=== PATIENT | male | born 1980 | race African-American/Black ===

== ENCOUNTER → 2020-10-17 | Outpatient (CLI) | payer BC ==
[2020-10-17 09:31] LABS: BASO % 2 % (0-3); EOS # 0.1 x10^3/uL (0.0-0.7); EOS % 3 % (0-3); HEMOGLOBIN 15.4 g/dL (13.0-17.5); LYMPH # 0.8 x10^3/uL (1.0-4.8); LYMPH % 30 % (24-48); MEAN CORPUSCULAR HEMOGLOBIN 30 pg (25-35); MEAN CORPUSCULAR HGB CONC 34 g/dL (31-37); MEAN CORPUSCULAR VOLUME 90 fL (79-100); MONO # 0.3 x10^3/uL (0.0-1.1); MONO % 13 % (0-9); NEUT # 1.3 x10^3/uL (1.8-7.7); NEUT % 52 % (31-73); RED BLOOD COUNT 5.12 x10^6/uL (4.30-5.70); RED CELL DISTRIBUTION WIDTH 13.6 % (11.5-14.5); WHITE BLOOD COUNT 2.6 x10^3/uL (4.0-11.0)
[2020-10-18 05:37] LABS: PLATELET COUNT 66 x10^3/uL (140-400)
[2020-10-18 13:17] LABS: IMMUNOGLOBULIN A 209 mg/dL (90-386); IMMUNOGLOBULIN G 1315 mg/dL (603-1613); IMMUNOGLOBULIN M 26 mg/dL (20-172)
[2020-10-18 14:17] LABS: ALBUM 4.3 g/dL (2.9-4.4); ALPHA 1 0.2 g/dL (0.0-0.4); ALPHA 2 0.5 g/dL (0.4-1.0); GAMMA 1.3 g/dL (0.4-1.8); PROTEIN TOTAL 7.2 g/dL (6.0-8.5); SPEP AG RATIO 1.5 (0.7-1.7)
[2020-10-18 16:13] LABS: KAPPA FREE 20.1 mg/L (3.3-19.4); LAMBDA FREE 18.3 mg/L (5.7-26.3)
[2020-10-18 19:09] LABS: ANA INTERP Negative (.)
== END ==
LOC: ONCLAB 09:01
PROVIDERS: ATTEND Internal Medicine Hematology & Oncology
DX: D69.6 Thrombocytopenia, unspecified (principal)
CPT/HCPCS: 36415; 82525; 82746; 82784; 83010; 83520; 84165; 85025; 86038; 86334

== ENCOUNTER 2020-11-07 07:24 | Outpatient (CLI) | payer BC ==
[2020-11-07] VITALS (11 sets, daily range): BP systolic 100–118; BP diastolic 59–79
[~2020-11-07] VITALS: Ht 188 cm; Wt 204.0 kg
[2020-11-07 07:55] LABS: BASO % 1 % (0-3); EOS # 0.2 x10^3/uL (0.0-0.7); EOS % 4 % (0-3); HEMOGLOBIN 15.7 g/dL (13.0-17.5); LYMPH # 1.2 x10^3/uL (1.0-4.8); LYMPH % 31 % (24-48); MEAN CORPUSCULAR HEMOGLOBIN 30 pg (25-35); MEAN CORPUSCULAR HGB CONC 33 g/dL (31-37); MEAN CORPUSCULAR VOLUME 90 fL (79-100); MONO # 0.5 x10^3/uL (0.0-1.1); MONO % 14 % (0-9); NEUT # 1.9 x10^3/uL (1.8-7.7); NEUT % 50 % (31-73); PLATELET COUNT 68 x10^3/uL (140-400); RED BLOOD COUNT 5.21 x10^6/uL (4.30-5.70); RED CELL DISTRIBUTION WIDTH 13.9 % (11.5-14.5); WHITE BLOOD COUNT 3.8 x10^3/uL (4.0-11.0)
[2020-11-07 08:00] LABS: PROTHROMBIN TIME PATIENT 11.9 SEC (11.7-14.0)
[2020-11-07] MEDS ORDERED: LIDOCAINE WITH 8.4% SOD BICARB 3 ML DISP.SYRIN. ONE ×2 (08:21→08:22)
[2020-11-07 08:37] LABS: PLT ESTIMATE DECREASED (ADEQUATE)
[2020-11-07] MEDS ORDERED: MIDAZOLAM HCL/PF 2 MG/2 ML VIAL. ONE (08:45)
[2020-11-07] MEDS ORDERED: FLUMAZENIL 0.5 MG/5 ML VIAL. IV ONE (08:46)
[2020-11-07] MEDS ORDERED: fentaNYL PF VIAL 100 MCG/2 ML VIAL ONE (08:46)
[2020-11-07] MEDS ORDERED: NALOXONE 0.4 MG/ML VIAL. ONE (08:46)
--- NOTE | 2020-11-07 09:10 | PDOC ---
Exam Hone Operator Hone Operator Justin Pre-Procedure Diagnosis Pre-Procedure Diagnosis Thrombocytopenia Post-Procedure Diagnosis Post-Procedure Diagnosis same Procedure Performed Procedure Performed Bone marrow Bx Type of Anesthesia Type of Anesthesia Mod Sed Estimated Blood Loss EBL: 15 ( Sample included) Specimens Specimans Bone marrow aspirate and core bx Drain/Tubes Drains/Tubes None Condition of Patient Condition of Patient Stable Disposition Disposition [facility] FOR RECOVERY AND EXPECTED DC HOME MARY TURNER MD Nov 07, 2020 09:10
--- NOTE | 2020-11-07 09:12 | PDOC ---
MODERATE SEDATION ASSESSMENT RISKS/ALTERNATIVES Risks/Alternatives Risks and alternatives of this type of sedation and procedure discussed with: RISK/ALTERNATIVES: Patient H & P ON CHART H & P H & P on chart and reviewed for co-morbid conditions and appropriate labs. H&P ON CHART: Yes STATUS PREG STATUS ASSESSED: N/A MEDS/ALLERGIES REVIEWED Meds/Allergies Reviewed Medications and Allergies including time and route of recently administered narcotics and sedatives. MEDS/ALLERGIES REVIEWED: Yes ASA RATING ASA RATING: II AIRWAY ASSESSMENT Airway Assessment Airway patency, oral function limitations, presence of caps, crowns, dentures, partials, and ability to extend neck assessed. AIRWAY ASSESSMENT: Yes MALLAMPATI SCORE MALLAMPATI SCORE: II PRE-SEDATION ASSESSMENT PRE-SEDATION ASSESSMENT: Yes MARY TURNER MD Nov 07, 2020 09:11
[2020-11-07] MEDS ORDERED: LIDOCAINE WITH 8.4% SOD BICARB 3 ML DISP.SYRIN. IJ ONE (09:15)
[2020-11-07] MEDS ORDERED: MIDAZOLAM HCL/PF 2 MG/2 ML VIAL. IV ONE (09:15)
[2020-11-07] MEDS ORDERED: fentaNYL PF VIAL 100 MCG/2 ML VIAL IV ONE (09:15)
--- NOTE | 2020-11-07 11:18 | NUR ---
Discharge Note: ROLA CELIS Discharge instructions and discharge home medications reviewed with Patient and a copy given. All questions have been answered and understanding verbalized. The following instructions and handouts were given: adult moderate sedation and bone marrow post biopsy care Discontinued lines and drains: Peripheral IV intact. Patient discharged to Home or Self Care withSpousevia Wheelchair
--- NOTE | 2020-11-07 14:18 | RAD ---
Procedure: CT guided iliac crest bone marrow aspirate and biopsy with conscious sedation . Clinical Indication: Thrombocytopenia Discussion: The risks and benefits of the procedure including but not limited to infection, bleeding, and pain, were discussed the patient. Informed consent was obtained. Patient was brought to the CT s canner and placed in the prone position. A time out procedure was performed. The left gluteal region was prepped and draped using maximum sterile barrier technique. CT imaging of the pelvis was perform ed demonstrating a left ilium amenable to bone marrow biopsy. Once an appropriate site for skin entry was selected 1% lidocaine without epinephrine was administered for local anesthesia Following this an [employer] Automatic Splicing Machine Operator an 11 gauge biopsy needle was set into the superficial cortex of the iliac crest. Aspirates and cores were obtained. Pressure was held to achieve hemostasis. Sterile dressing was applied. The patient tolerated the procedure well without immediate complication. Sedation: Conscious sedation was performed for 25 minutes. Sedation was carried while the patient wa s continually monitored by a member of the Radiology nursing staff. Continual cardiopulmonary monito ring was carried out during the procedure. Conclusion: Successful CT guided bone marrow biopsy and aspirate of left iliac crest CT DOSING PQRS STATEMENT: One or more of the following individualized dose reduction techniques were utilized for this examinat ion: 1. Automated exposure control 2. Adjustment of the mA and/or kV according to patient size 3. Use of iterative reconstruction technique Electronically signed by: Trevor Anderson MD (11/07/2020 2:15 PM) [id number]
== END 2020-11-07 11:10 | disposition home or self-care (01) ==
LOC: INTRAD 07:24
PROVIDERS: ATTEND Internal Medicine Hematology & Oncology
DX: D69.6 Thrombocytopenia, unspecified (principal); Z87.891 Personal history of nicotine dependence; Z79.899 Other long term (current) drug therapy
CPT/HCPCS: 36415; 38222; 77012; 85025; 85610; 88184; 88185; 88237; 88305; 88311; 88313; 99152; 99153; J2250; J3010; J3490

== ENCOUNTER → 2020-11-28 | Outpatient (CLI) | payer BC ==
[2020-11-07 11:00] VITALS: BP 107/66
[2020-11-28 10:03] LABS: PARTIAL THROMBOPLASTIN TIME 25 SEC (24-38)
[2020-11-28 10:04] LABS: PROTHROMBIN TIME PATIENT 12.5 SEC (11.7-14.0)
[2020-11-28 10:45] LABS: D-DIMER < 0.27 ug/mlFEU (0.00-0.50)
== END ==
LOC: ONCLAB 08:41
PROVIDERS: ATTEND Internal Medicine Hematology & Oncology
DX: D69.6 Thrombocytopenia, unspecified (principal)
CPT/HCPCS: 36415; 83615; 85379; 85384; 85610; 85730

== ENCOUNTER → 2021-02-27 | Outpatient (CLI) | payer BC ==
[2020-11-07 11:00] VITALS: BP 107/66
[2021-02-27 10:08] LABS: BASO % 1 % (0-3); EOS # 0.1 x10^3/uL (0.0-0.7); EOS % 4 % (0-3); HEMATOCRIT 48.3 % (39.0-53.0); HEMOGLOBIN 15.6 g/dL (13.0-17.5); LYMPH # 1.2 x10^3/uL (1.0-4.8); LYMPH % 36 % (24-48); MEAN CORPUSCULAR HEMOGLOBIN 29 pg (25-35); MEAN CORPUSCULAR HGB CONC 32 g/dL (31-37); MEAN CORPUSCULAR VOLUME 90 fL (79-100); MONO # 0.6 x10^3/uL (0.0-1.1); MONO % 16 % (0-9); NEUT # 1.5 x10^3/uL (1.8-7.7); NEUT % 43 % (31-73); PLATELET COUNT 66 x10^3/uL (140-400); RED BLOOD COUNT 5.36 x10^6/uL (4.30-5.70); RED CELL DISTRIBUTION WIDTH 13.4 % (11.5-14.5); WHITE BLOOD COUNT 3.4 x10^3/uL (4.0-11.0)
[2021-02-27 10:28] LABS: PLT ESTIMATE DECREASED (ADEQUATE)
== END ==
LOC: ONCLAB 08:45
PROVIDERS: ATTEND Internal Medicine Hematology & Oncology
DX: D69.3 Immune thrombocytopenic purpura (principal)
CPT/HCPCS: 36415; 85025

== ENCOUNTER → 2021-05-28 | Outpatient (CLI) | payer BC ==
[2020-11-07 11:00] VITALS: BP 107/66
[2021-05-28 09:23] LABS: BASO # 0.1 x10^3/uL (0.0-0.2); BASO % 3 % (0-3); EOS # 0.2 x10^3/uL (0.0-0.7); EOS % 5 % (0-3); HEMATOCRIT 46.6 % (39.0-53.0); LYMPH # 1.1 x10^3/uL (1.0-4.8); LYMPH % 38 % (24-48); MEAN CORPUSCULAR HEMOGLOBIN 29 pg (25-35); MEAN CORPUSCULAR HGB CONC 32 g/dL (31-37); MEAN CORPUSCULAR VOLUME 90 fL (79-100); MONO # 0.4 x10^3/uL (0.0-1.1); MONO % 13 % (0-9); NEUT # 1.2 x10^3/uL (1.8-7.7); NEUT % 41 % (31-73); PLATELET COUNT 70 x10^3/uL (140-400); RED BLOOD COUNT 5.16 x10^6/uL (4.30-5.70); RED CELL DISTRIBUTION WIDTH 13.6 % (11.5-14.5)
[2021-05-28 10:43] LABS: PLT ESTIMATE DECREASED (ADEQUATE)
== END ==
LOC: ONCLAB 08:51
PROVIDERS: ATTEND Internal Medicine Hematology & Oncology
DX: D69.3 Immune thrombocytopenic purpura (principal)
CPT/HCPCS: 36415; 85025

== ENCOUNTER → 2021-08-27 | Outpatient (CLI) | payer BC ==
[2020-11-07 11:00] VITALS: BP 107/66
[2021-08-27 10:14] LABS: BASO # 0.1 x10^3/uL (0.0-0.2); BASO % 1 % (0-3); EOS # 0.3 x10^3/uL (0.0-0.7); EOS % 6 % (0-3); HEMATOCRIT 45.1 % (39.0-53.0); HEMOGLOBIN 14.9 g/dL (13.0-17.5); LYMPH % 21 % (24-48); MEAN CORPUSCULAR HEMOGLOBIN 30 pg (25-35); MEAN CORPUSCULAR HGB CONC 33 g/dL (31-37); MEAN CORPUSCULAR VOLUME 89 fL (79-100); MONO # 0.8 x10^3/uL (0.0-1.1); MONO % 16 % (0-9); NEUT # 2.7 x10^3/uL (1.8-7.7); NEUT % 56 % (31-73); PLATELET COUNT 66 x10^3/uL (140-400); RED BLOOD COUNT 5.04 x10^6/uL (4.30-5.70); RED CELL DISTRIBUTION WIDTH 13.9 % (11.5-14.5); WHITE BLOOD COUNT 4.8 x10^3/uL (4.0-11.0)
[2021-08-27 13:01] LABS: PLT ESTIMATE DECREASED (ADEQUATE)
== END ==
LOC: ONCLAB 09:43
PROVIDERS: ATTEND Internal Medicine Hematology & Oncology
DX: D69.3 Immune thrombocytopenic purpura (principal)
CPT/HCPCS: 36415; 85025